=== PATIENT | male | born 1965 | race African-American/Black ===

== ENCOUNTER 2022-04-20 12:49 | Inpatient (IN) | payer OTHER ==
[2022-04-20 13:20] VITALS: BMI 27.3
[2022-04-20 13:52] LABS: BASO % 0.8 % (0-2.0); EOS % 1.5 % (0-4.5); HEMATOCRIT 45.7 % (35.4-49); HEMOGLOBIN 15.4 GM/dL (11.7-16.9); LYMPH % 33.1 % (8-40); MCH 30.5 pg (25.7-33.7); MCHC 33.7 g/dl (32.0-35.9); MEAN CELL VOLUME 90.4 fl (80-96); MEAN PLT VOLUME 8.7 fl (7.5-11.1); MONO % 7.1 % (3.8-10.2); NEUT % 57.5 % (42.8-82.8); PLATELET COUNT 288 10^3/uL (134-434); RBC 5.05 M/mm3 (4.00-5.60); WHITE BLOOD COUNT 8.7 K/mm3 (4.0-10.0)
[2022-04-20 13:59] LABS: INR 1.08 (0.83-1.09); PROTHROMBIN TIME (PATIENT) 12.4 SEC (9.7-13.0)
[2022-04-20 14:00] LABS: ACTIVATED PTT 33.5 SECONDS (25.2-36.5)
[2022-04-20 14:24] LABS: CHLORIDE 102 mmol/L (98-107); SODIUM 132 mmol/L (136-145)
[2022-04-20 14:25] LABS: CALCIUM 9.3 mg/dL (8.5-10.1)
[2022-04-20 14:26] LABS: ALBUMIN 3.5 g/dl (3.4-5.0); CO2 27 mmol/L (21-32)
[2022-04-20 14:28] LABS: GLUCOSE,RANDOM 84 mg/dL (74-106)
[2022-04-20 14:29] LABS: BLOOD UREA NITROGEN 13.7 mg/dL (7-18); CREATININE 1.4 mg/dL (0.55-1.3)
[2022-04-20 14:31] LABS: TOT PROT 8.2 g/dl (6.4-8.2)
[2022-04-20 14:32] LABS: CHOLESTEROL 207 mg/dL (50-200); TRIGLYCERIDES 145 mg/dL (0-150)
[2022-04-20 14:33] LABS: LDL CHOLESTEROL (ONLY SJRH) 166 mg/dL (5-100)
[2022-04-20 14:34] LABS: ALK PHOS 95 U/L (45-117); HDL CHOLESTEROL 52 mg/dL (40-60)
[2022-04-20] MEDS ORDERED: ASPIRIN 81 MG CHEWABLE TABLETS PO SCH (15:00)
[2022-04-20 15:28] LABS: ANION GAP 3 MMOL/L (8-16); SGOT/AST 119 U/L (15-37)
[2022-04-20 16:06] LABS: PH,URINE 6.5 (5.0-8.0); URINE APPEARANCE CLEAR; URINE BILIRUBIN NEGATIVE (NEGATIVE); URINE COLOR YELLOW; URINE GLUCOSE (UA) NEGATIVE (NEGATIVE); URINE KETONE NEGATIVE (NEGATIVE); URINE LEUK ESTERASE NEGATIVE (NEGATIVE); URINE NITRITE NEGATIVE (NEGATIVE); URINE PROTEIN NEGATIVE (NEGATIVE); URINE UROBILINOGEN 0.2 mg/dL (0.2-1.0)
[2022-04-20] MEDS ORDERED: amLODIPine BESYLATE 10 MG TABLET (FP) ONE (16:08)
[2022-04-20] MEDS: amLODIPine BESYLATE 10 MG TABLET (FP) PO SCH (16:10)
[2022-04-20] MEDS ORDERED: ACETAMINOPHEN 1000 MG/100 ML BAG IVPB ONE (17:08)
[2022-04-20] MEDS ORDERED: ACETAMINOPHEN INJECTION 100 ML IVPB ONE (17:23)
[2022-04-20 18:05] LABS: BLOOD UREA NITROGEN 11.9 mg/dL (7-18); CALCIUM 9.1 mg/dL (8.5-10.1)
[2022-04-20 18:09] LABS: CREATININE 1.3 mg/dL (0.55-1.3)
[2022-04-20] MEDS: CARVEDILOL 25 MG TABLET (FP) PO SCH (21:30)
[2022-04-21] MEDS ORDERED: ASPIRIN 325 MG TABLET PO ONE (06:15)
[2022-04-21] MEDS: amLODIPine BESYLATE 10 MG TABLET (FP) PO SCH (09:45)
[2022-04-21] MEDS: CARVEDILOL 25 MG TABLET (FP) PO SCH ×2 (09:46→22:19)
[2022-04-21] MEDS: NICOTINE 7 MG/24 HOURS TOPICAL PATCH TD SCH (10:10)
[2022-04-21] MEDS: ACETAMINOPHEN 325 MG TABLET (FP) PO PRN (14:12)
[2022-04-21] MEDS: ENOXAPARIN NA (PORCINE) 40 MG/0.4 ML DISP.SYRIN SQ SCH (15:00)
[2022-04-21] MEDS: ATORVASTATIN CA 80 MG TABLET (FP) PO SCH (22:19)
[2022-04-22] MEDS: amLODIPine BESYLATE 10 MG TABLET (FP) PO SCH (10:45)
[2022-04-22] MEDS: CARVEDILOL 25 MG TABLET (FP) PO SCH ×2 (10:45→21:31)
[2022-04-22] MEDS: NICOTINE 7 MG/24 HOURS TOPICAL PATCH TD SCH (10:45)
[2022-04-22] MEDS: ENOXAPARIN NA (PORCINE) 40 MG/0.4 ML DISP.SYRIN SQ SCH (10:46)
[2022-04-22] MEDS: ASPIRIN 81 MG CHEWABLE TABLETS PO SCH (10:48)
[2022-04-22] MEDS ORDERED: traMADol HCL 50 MG TABLET PO ONE (21:19)
[2022-04-22] MEDS: ATORVASTATIN CA 80 MG TABLET (FP) PO SCH (21:31)
[2022-04-22] MEDS: INSULIN SLIDING SCALE (NOVOLOG) 1 VIAL SQ SCH (21:32)
[2022-04-23] MEDS: INSULIN SLIDING SCALE (NOVOLOG) 1 VIAL SQ SCH ×4 (06:31→21:50)
[2022-04-23] MEDS: LOSARTAN POTASSIUM 50 MG TABLET PO SCH (09:45)
[2022-04-23] MEDS: amLODIPine BESYLATE 10 MG TABLET (FP) PO SCH (09:45)
[2022-04-23] MEDS: CARVEDILOL 25 MG TABLET (FP) PO SCH ×2 (09:45→21:48)
[2022-04-23] MEDS: ASPIRIN 81 MG CHEWABLE TABLETS PO SCH (09:45)
[2022-04-23] MEDS: ENOXAPARIN NA (PORCINE) 40 MG/0.4 ML DISP.SYRIN SQ SCH (09:45)
[2022-04-23] MEDS: HYDROCHLOROTHIAZIDE 12.5 MG CAPSULE (FP) PO SCH (09:45)
[2022-04-23] MEDS: NICOTINE 7 MG/24 HOURS TOPICAL PATCH TD SCH (09:46)
[2022-04-23] MEDS: ACETAMINOPHEN 325 MG TABLET (FP) PO PRN (10:30)
[2022-04-23] MEDS: ATORVASTATIN CA 80 MG TABLET (FP) PO SCH (21:48)
[2022-04-24] MEDS: INSULIN SLIDING SCALE (NOVOLOG) 1 VIAL SQ SCH ×4 (06:20→21:30)
[2022-04-24] MEDS: ASPIRIN 81 MG CHEWABLE TABLETS PO SCH (10:28)
[2022-04-24] MEDS: ENOXAPARIN NA (PORCINE) 40 MG/0.4 ML DISP.SYRIN SQ SCH (10:28)
[2022-04-24] MEDS: CARVEDILOL 25 MG TABLET (FP) PO SCH ×2 (10:28→21:16)
[2022-04-24] MEDS: amLODIPine BESYLATE 10 MG TABLET (FP) PO SCH (10:28)
[2022-04-24] MEDS: HYDROCHLOROTHIAZIDE 12.5 MG CAPSULE (FP) PO SCH (10:28)
[2022-04-24] MEDS: NICOTINE 7 MG/24 HOURS TOPICAL PATCH TD SCH (10:28)
[2022-04-24] MEDS: LOSARTAN POTASSIUM 50 MG TABLET PO SCH (10:28)
[2022-04-24] MEDS: ATORVASTATIN CA 80 MG TABLET (FP) PO SCH (21:16)
[2022-04-25] MEDS: INSULIN SLIDING SCALE (NOVOLOG) 1 VIAL SQ SCH ×4 (06:24→21:51)
[2022-04-25] MEDS: PANTOPRAZOLE 20 MG TABLET PO SCH (10:15)
[2022-04-25] MEDS: amLODIPine BESYLATE 10 MG TABLET (FP) PO SCH (10:15)
[2022-04-25] MEDS: CARVEDILOL 25 MG TABLET (FP) PO SCH ×2 (10:15→21:51)
[2022-04-25] MEDS: ASPIRIN 81 MG CHEWABLE TABLETS PO SCH (10:15)
[2022-04-25] MEDS: ENOXAPARIN NA (PORCINE) 40 MG/0.4 ML DISP.SYRIN SQ SCH (10:15)
[2022-04-25] MEDS: NICOTINE 7 MG/24 HOURS TOPICAL PATCH TD SCH (10:15)
[2022-04-25] MEDS: LOSARTAN POTASSIUM 50 MG TABLET PO SCH (10:16)
[2022-04-25] MEDS: HYDROCHLOROTHIAZIDE 12.5 MG CAPSULE (FP) PO SCH (10:16)
[2022-04-25] MEDS: ATORVASTATIN CA 80 MG TABLET (FP) PO SCH (21:51)
[2022-04-26] MEDS: INSULIN SLIDING SCALE (NOVOLOG) 1 VIAL SQ SCH ×4 (07:04→21:08)
[2022-04-26] MEDS: CARVEDILOL 25 MG TABLET (FP) PO SCH ×2 (09:54→21:05)
[2022-04-26] MEDS: amLODIPine BESYLATE 10 MG TABLET (FP) PO SCH (09:54)
[2022-04-26] MEDS: PANTOPRAZOLE 20 MG TABLET PO SCH (09:54)
[2022-04-26] MEDS: NICOTINE 7 MG/24 HOURS TOPICAL PATCH TD SCH (09:54)
[2022-04-26] MEDS: ASPIRIN 81 MG CHEWABLE TABLETS PO SCH (09:54)
[2022-04-26] MEDS: LOSARTAN POTASSIUM 50 MG TABLET PO SCH (09:55)
[2022-04-26] MEDS: HYDROCHLOROTHIAZIDE 12.5 MG CAPSULE (FP) PO SCH (09:56)
[2022-04-26] MEDS: ENOXAPARIN NA (PORCINE) 40 MG/0.4 ML DISP.SYRIN SQ SCH (09:56)
[2022-04-26] MEDS: ATORVASTATIN CA 80 MG TABLET (FP) PO SCH (21:05)
[2022-04-27] MEDS: INSULIN SLIDING SCALE (NOVOLOG) 1 VIAL SQ SCH (06:16)
[2022-04-27 07:12] VITALS: BP 110/66; PULSE 72; TEMP 98.3
[2022-04-27] MEDS: ASPIRIN 81 MG CHEWABLE TABLETS PO SCH (10:14)
[2022-04-27] MEDS: ENOXAPARIN NA (PORCINE) 40 MG/0.4 ML DISP.SYRIN SQ SCH (10:14)
[2022-04-27] MEDS: HYDROCHLOROTHIAZIDE 12.5 MG CAPSULE (FP) PO SCH (10:15)
[2022-04-27] MEDS: amLODIPine BESYLATE 10 MG TABLET (FP) PO SCH (10:15)
[2022-04-27] MEDS: CARVEDILOL 25 MG TABLET (FP) PO SCH (10:15)
[2022-04-27] MEDS: PANTOPRAZOLE 20 MG TABLET PO SCH (10:15)
[2022-04-27] MEDS: LOSARTAN POTASSIUM 50 MG TABLET PO SCH (10:15)
[2022-04-27] MEDS: NICOTINE 7 MG/24 HOURS TOPICAL PATCH TD SCH (10:16)
== END 2022-04-27 13:48 | disposition home or self-care (01) | DRG 65 ==
LOC: JER 12:49 → JERBED 14:27 → J4S 20:40 → OBSVTOIN 04-21 15:13
PROVIDERS: ADMIT Internal Medicine; ATTEND Internal Medicine
DX: I63.89 Other cerebral infarction (principal); E87.1 Hypo-osmolality and hyponatremia; I69.354 Hemiplegia and hemiparesis following cerebral infarction affecting left non-dominant side; I25.10 Atherosclerotic heart disease of native coronary artery without angina pectoris; E78.5 Hyperlipidemia, unspecified; R26.2 Difficulty in walking, not elsewhere classified; I12.9 Hypertensive chronic kidney disease with stage 1 through stage 4 chronic kidney disease, or unspecified chronic kidney disease; E11.22 Type 2 diabetes mellitus with diabetic chronic kidney disease; N18.9 Chronic kidney disease, unspecified; R51.9 Headache, unspecified; R29.705 NIHSS score 5; F12.10 Cannabis abuse, uncomplicated
CPT/HCPCS: 36415; 70450-TC; 70551-TC; 80048; 80053; 80061; 81003; 82550; 82553; 82962; 83036; 84484; 85025; 85610; 85730; 93005; 93010; 93306-TC; 93880-TC; 97116-GP; 97161-GP; 99285-25; C9803-CS; G0378; U0003; U0005

== ENCOUNTER 2023-06-03 17:31 | Emergency (ER) | payer OTHER ==
[2023-06-03 17:47] VITALS: BP 155/102; PULSE 81; RESP 18; TEMP 98.1; BMI 28.3
[2023-06-03] MEDS ORDERED: IBUPROFEN 600 MG TABLET (FP) PO ONE ×2 (18:38→18:55)
== END 2023-06-03 20:04 | disposition home or self-care (01) ==
LOC: JER 17:31 → JERFT 17:31
DX: B34.9 Viral infection, unspecified (principal); R05.9 Cough, unspecified; R07.0 Pain in throat; M79.10 Myalgia, unspecified site; R51.9 Headache, unspecified; R06.02 Shortness of breath; Z20.822 Contact with and (suspected) exposure to COVID-19
CPT/HCPCS: 0241U-QW; 71046-TC-FY; 99284-25

== ENCOUNTER 2024-01-26 10:44 | Emergency (ER) | payer OTHER ==
[2024-01-26 10:49] VITALS: BP 137/79; PULSE 72; RESP 18; TEMP 97.5; BMI 27.4
[2024-01-26] MEDS ORDERED: ACETAMINOPHEN 500 MG TABLET (FP) ONE (11:46)
[2024-01-26] MEDS: ACETAMINOPHEN 500 MG TABLET (FP) PO ONE (11:49)
== END 2024-01-26 15:16 | disposition home or self-care (01) ==
LOC: JERFT 10:44
DX: M25.561 Pain in right knee (principal); S86.911A Strain of unspecified muscle(s) and tendon(s) at lower leg level, right leg, initial encounter; R22.41 Localized swelling, mass and lump, right lower limb; X58.XXXA Exposure to other specified factors, initial encounter
CPT/HCPCS: 73562-TC-RT-FY; 93971-TC; 99284-25